=== PATIENT | female | born 1990 | race Caucasian/White ===

== ENCOUNTER 2017-01-21 08:39 | Emergency (ER) | payer SELFPAY ==
[~2017-01-21] VITALS: Ht 154.9 cm; Wt 64.4 kg
[2017-01-21 08:47] VITALS: BP 111/58
--- NOTE | 2017-01-21 08:50 | NUR ---
PATIENT PRESENTS TO ED WITH CHIEF COMPLAINTS OF ABDOMINAL PAIN, NAUSEA AND VOMITING THIS MORNING. SKIN IS PINK/WARM/DRY; AAOX4 WITH EVEN AND STEADY GAIT; LUNGS CLEAR BL; HR EVEN AND REGULAR; PT DENIES ANY FEVER, CP, SOB, OR COUGH AT THIS TIME; PATIENT STATES PAIN OF 9/10 AT THIS TIME; VSS; PATIENT POSITIONED FOR COMFORT; HOB ELEVATED; BEDRAILS UP X2; BED DOWN. ER MD MADE AWARE OF PT STATUS.
--- NOTE | 2017-01-21 08:55 | NUR ---
Patient ambulated to bed 6 with family. RN evaluating patient at bedside.
[2017-01-21] MEDS ORDERED: ONDANSETRON 4 MG ODT PO ONE (09:10)
[2017-01-21] MEDS ORDERED: KETOROLAC 60 MG/2 ML VIAL IM ONE (09:10)
--- NOTE | 2017-01-21 09:46 | NUR ---
DR RODRIGUEZ AT BEDSIDE.
--- NOTE | 2017-01-21 09:56 | NUR ---
ABOUT TO DISCHARGE PATIENT. WANT PAIN MED. PRIOR TO DISCHARGE.02/17. ERMD MADE AWARE
--- NOTE | 2017-01-21 09:59 | NUR ---
medicated for abd. pain
[2017-01-21] MEDS ORDERED: HYDROcodone/APAP 5/325 MG 1 TAB TAB PO ONE (10:00)
[2017-01-21 10:23] VITALS: BP 101/60
--- NOTE | 2017-01-21 10:23 | NUR ---
Patient discharged with v/s stable. Written and verbal after care instructions given and explained. Patient alert, oriented and verbalized understanding of instructions. Ambulatory with steady gait. All questions addressed prior to discharge. ID band removed. Patient advised to follow up with PMD. Rx of norco,zofran,motrin,miralax given. Patient educated on indication of medication including possible reaction and side effects. Opportunity to ask questions provided and answered.
--- NOTE | 2017-01-21 10:23 | NUR ---
work note provided
== END 2017-01-21 10:23 | disposition home or self-care (01) ==
LOC: MED 08:39
DX: R10.12 Left upper quadrant pain (principal); R11.2 Nausea with vomiting, unspecified; R50.9 Fever, unspecified
CPT/HCPCS: 81002; 81025; 96372; 99283; J1885; S0119